=== PATIENT | female | born 1955 | race Caucasian/White ===

== ENCOUNTER 2019-04-28 16:51 | Emergency (ER) | payer BC, MEDICAID, OTHER ==
[~2019-04-28] VITALS: Ht 157.5 cm; Wt 83.5 kg
[2019-04-28 16:56] VITALS: BP 152/52; Ht 157.5 cm; Wt 83.5 kg
[2019-04-28 17:45] LABS: URIC ACID 3.3 mg/dL (2.6-6.0)
[2019-04-28 18:34] LABS: C REACTIVE PROTEIN < 0.2 mg/dL (<=0.9)
== END 2019-04-28 19:02 | disposition home or self-care (01) ==
LOC: ED 16:51
PROVIDERS: Emergency Medicine
DX: E11.40 Type 2 diabetes mellitus with diabetic neuropathy, unspecified (principal); I10 Essential (primary) hypertension; E11.9 Type 2 diabetes mellitus without complications
CPT/HCPCS: 82962; J1885; Q0092

== ENCOUNTER 2020-01-02 14:40 | Emergency (ER) | payer OTHER, MEDICAID ==
[~2020-01-02] VITALS: Ht 160 cm; Wt 80.3 kg
[2020-01-02 14:52] VITALS: Ht 160 cm; Wt 80.3 kg
[2020-01-02 15:42] LABS: BASOPHIL % 1.5 % (0-2); PLATELET COUNT 298 x10^3mcL (130-400); RED CELL DISTRIBUTION WIDTH 14.6 % (11.5-14.5)
[2020-01-02 15:52] LABS: CALCIUM 9.6 mg/dL (8.5-10.1); CARBON DIOXIDE 29.2 mmol/L (21-32); CHLORIDE SERUM 103 mmol/L (98-107); CREATININE SERUM 0.9 mg/dL (0.6-1.0); GFR1 > 60 mL/min; GLUCOSE SERUM 117 mg/dL (74-106); POTASSIUM SERUM 4.8 mmol/L (3.5-5.1); SODIUM SERUM 140 mmol/L (136-145)
[2020-01-02 17:54] VITALS: BP 132/75
== END 2020-01-02 17:54 | disposition home or self-care (01) ==
LOC: ED 14:40
PROVIDERS: Emergency Medicine
DX: R42 Dizziness and giddiness (principal); H92.02 Otalgia, left ear; J40 Bronchitis, not specified as acute or chronic; R09.1 Pleurisy; R07.89 Other chest pain; I10 Essential (primary) hypertension; E10.9 Type 1 diabetes mellitus without complications
CPT/HCPCS: J7030; J8597

== ENCOUNTER 2020-01-10 15:30 | Inpatient (IN) | payer OTHER, MEDICAID ==
[~2020-01-10] VITALS: Ht 157.5 cm; Wt 81.7 kg
[2020-01-10 16:15] LABS: BASOPHIL % 0.6 % (0-2); PLATELET COUNT 291 x10^3mcL (130-400); RED CELL DISTRIBUTION WIDTH 14.5 % (11.5-14.5)
[2020-01-10] MEDS ORDERED: DRAMAMINE LESS25 MG PO (16:25)
[2020-01-10] MEDS ORDERED: AUGMENTIN 875-1 EACH PO (16:26)
[2020-01-10] MEDS ORDERED: NOVOLOG MIX 70/33 ML SQ (16:26)
[2020-01-10] MEDS ORDERED: ZESTRIL40 MG PO (16:27)
[2020-01-10] MEDS ORDERED: TOUJEO300 U/ML SQ (16:27)
[2020-01-10] MEDS ORDERED: GLUMETZA1000 MG PO (16:27)
[2020-01-10] MEDS ORDERED: LIPITOR10 MG PO (16:28)
[2020-01-10] MEDS ORDERED: JANUVIA100 M1 PO (16:28)
[2020-01-10] MEDS ORDERED: ROBITUSSIN NIG237 ML (16:29)
[2020-01-10 16:38] LABS: CARBON DIOXIDE 27.9 mmol/L (21-32); CHLORIDE SERUM 102 mmol/L (98-107); CREATININE SERUM 0.9 mg/dL (0.6-1.0); GFR1 > 60 mL/min; GLUCOSE SERUM 142 mg/dL (74-106); POTASSIUM SERUM 4.6 mmol/L (3.5-5.1); SODIUM SERUM 139 mmol/L (136-145)
[2020-01-10 16:52] LABS: ALBUMIN 3.7 g/dL (3.4-5.0); ALKALINE PHOSPHATASE 92 U/L (46-116); ALT/SGPT 22 U/L (14-59); AST/SGOT 16 U/L (15-37); BILIRUBIN TOTAL 0.2 mg/dL (0.20-1.00); T4(THYROXINE) 8.8 ug/dL (4.7-13.3); TOTAL PROTEIN, SERUM 7.6 g/dL (6.4-8.2)
[2020-01-10 18:57] VITALS: BP 150/53
[2020-01-10 19:04] VITALS: Ht 157.5 cm; Wt 81.7 kg
[2020-01-10 19:05] LABS: CHOLESTEROL/HDL RATIO 3.1
[2020-01-10 20:34] VITALS: BP 136/43
[2020-01-11] VITALS (8 sets, daily range): BP systolic 103–139; BP diastolic 43–66
[2020-01-11 06:53] LABS: BASOPHIL % 0.8 % (0-2); PLATELET COUNT 244 x10^3mcL (130-400); RED CELL DISTRIBUTION WIDTH 14.5 % (11.5-14.5)
[2020-01-11 07:08] LABS: CALCIUM 8.8 mg/dL (8.5-10.1); CARBON DIOXIDE 30.8 mmol/L (21-32); CHLORIDE SERUM 105 mmol/L (98-107); CREATININE SERUM 0.8 mg/dL (0.6-1.0); GFR1 > 60 mL/min; GLUCOSE SERUM 81 mg/dL (74-106); MAGNESIUM 1.5 mg/dL (1.8-2.4); PHOSPHOROUS 4.5 mg/dL (2.5-4.9); POTASSIUM SERUM 4.5 mmol/L (3.5-5.1); SODIUM SERUM 140 mmol/L (136-145)
[2020-01-11 11:43] LABS: microscopic required? NO
[2020-01-11 11:56] LABS: UA SPECIFIC GRAVITY 1.015 (1.005-1.035); urine erythrocyte NEGATIVE (NEGATIVE)
[2020-01-11 12:49] LABS: AMPHETAMINE QUAL UR NONE DETECTED (See below)
[2020-01-12 06:11] VITALS: BP 136/61
[2020-01-12 06:35] LABS: BASOPHIL % 0.6 % (0-2); PLATELET COUNT 245 x10^3mcL (130-400)
[2020-01-12 06:44] LABS: CALCIUM 8.7 mg/dL (8.5-10.1); CARBON DIOXIDE 31.3 mmol/L (21-32); CHLORIDE SERUM 106 mmol/L (98-107); CREATININE SERUM 0.7 mg/dL (0.6-1.0); GFR1 > 60 mL/min; GLUCOSE SERUM 109 mg/dL (74-106); MAGNESIUM 1.6 mg/dL (1.8-2.4); POTASSIUM SERUM 4.7 mmol/L (3.5-5.1); SODIUM SERUM 141 mmol/L (136-145)
[2020-01-12 07:08] LABS: RED CELL DISTRIBUTION WIDTH 14.6 % (11.5-14.5)
[2020-01-12 08:58] VITALS: BP 117/47
[2020-01-12] MEDS ORDERED: CLA10 PO (10:39)
[2020-01-12 10:57] VITALS: BP 117/47
[2020-01-12 13:10] VITALS: BP 125/54
== END 2020-01-12 14:28 | disposition home health service (06) | DRG 74 ==
LOC: ED 15:30 → DU 17:41 → MU 17:41 → DU 18:38 → MU 01-11 13:04
PROVIDERS: Emergency Medicine; ADMIT Family Medicine
DX: G90.8 Other disorders of autonomic nervous system (principal); M94.0 Chondrocostal junction syndrome [Tietze]; J20.9 Acute bronchitis, unspecified; R11.0 Nausea; R51 Headache; M25.511 Pain in right shoulder; I10 Essential (primary) hypertension; E11.9 Type 2 diabetes mellitus without complications; E78.5 Hyperlipidemia, unspecified; Z91.81 History of falling; Z86.73 Personal history of transient ischemic attack (TIA), and cerebral infarction without residual deficits; Z79.84 Long term (current) use of oral hypoglycemic drugs
CPT/HCPCS: 82962; 83880; 97116-GP; 97530-GP; G0378; J1644; J2405; J3475; J7050; Q0092